=== PATIENT | female | born 1940 | race Caucasian/White ===

== ENCOUNTER 2020-12-15 17:37 | Inpatient (IN) ==
[2020-12-15 18:12] VITALS: BMI 24.4
[2020-12-15] MEDS ORDERED: NS 500 ML IV 500 ML IV STA (18:21)
[2020-12-15] MEDS ORDERED: ROCEPHIN 1 GRAM IV PREMIX 1 G/50 ML IV.SOLN. IV ONE ×2 (18:28→18:35)
[2020-12-15] MEDS ORDERED: CARDIZEM INJ 50 MG VIAL IVP ONE (18:28)
[2020-12-15] MEDS ORDERED: NS 500 ML IV 500 ML IV ONE (18:35)
[2020-12-15] MEDS ORDERED: CARDIZEM INJ 50 MG VIAL ONE (18:36)
[2020-12-15 19:00] LABS: BASOPHILS % (AUTO) 0.5 % (0.2-1.0); EOSINOPHILS % (AUTO) 0.2 % (0.9-2.9); HEMATOCRIT 35.3 % (36.0-47.0); HEMOGLOBIN 11.3 g/dL (12.0-16.0); LYMPHOCYTES # (AUTO) 1.7 X10^3/uL (1.3-2.9); LYMPHOCYTES % (AUTO) 20.3 % (21.0-51.0); MEAN CORPUSCULAR HEMOGLOBIN 31.8 pg (27.0-34.0); MEAN CORPUSCULAR HGB CONC 31.9 g/dL (33.0-35.0); MEAN CORPUSCULAR VOLUME 99.8 fL (80.0-100.0); MEAN PLATELET VOLUME 7.6 fL (7.4-11.0); MONOCYTES # (AUTO) 0.8 x10^3/uL (0.3-0.8); MONOCYTES % (AUTO) 9.6 % (0.0-13.0); NEUTROPHILS # (AUTO) 5.9 x10^3/uL (2.2-4.8); NEUTROPHILS % (AUTO) 69.4 % (42.0-75.0); PLATELET COUNT 348 X10^3/uL (150.0-450.0); RED BLOOD COUNT 3.54 X10^6/uL (3.5-5.4); WHITE BLOOD COUNT 8.6 X10^3/uL (3.6-10.0)
[2020-12-15] MEDS ORDERED: NS 100 ML IV 100 ML IV ONE (19:06)
[2020-12-15] MEDS ORDERED: CARDIZEM INJ 125 MG VIAL ONE (19:07)
[2020-12-15 19:13] LABS: ALANINE AMINOTRANSFERASE 20 Units/L (12-78); ALBUMIN 2.4 g/dL (3.4-5.0); ALKALINE PHOSPHATASE 125 Units/L (46-116); ASPARTATE AMINO TRANSFERASE 37 Units/L (15-37); BLOOD UREA NITROGEN 22 mg/dL (7-18); CALCIUM 8.5 mg/dL (8.5-10.1); CARBON DIOXIDE 24.6 mmol/L (21-32); CHLORIDE 102 mmol/L (98-107); COR CA(FOR HYPOALB) 9.8 mg/dL (8.5-10.1); COR NA(FOR HYPERGLY) 138 mmol/L (136-145); CREATININE 0.99 mg/dL (0.55-1.02); SODIUM 138 mmol/L (136-145); TOTAL PROTEIN 6.1 g/dL (6.4-8.2); eGFR NON BLACK RACES 58 (>60)
[2020-12-15] MEDS: CARDIZEM INJ 125 MG VIAL 125 MG in NS 100 ML IV 100 ML IV PRN (19:14)
[2020-12-15] MEDS ORDERED: AQUA-MEPHYTON ADULT INJ SC ONE (19:53)
--- NOTE | 2020-12-15 20:17 | DR.GENAD ---
HPI Time Seen Time Seen by Provider: 12/15/20 18:19 PCP Primary Care Physician: JOIE BARCLAY HPI Comment HPI Comment: PATIENT DIAGNOSED WITH A DVT OF LEFT LOWER EXTREMITY, REFERRED FROM DR SALTER FOR EVALUATION OF DYSPNEA PAST FEW DAYS AND AN ELEVATED INR-25. PATIENT TREATED FOR DVT INITALLY WITH ELIQUIS 10MG TWICE DAILY THE MONTHS OF SEP AND OCT 2020, ANTICOAGULANT CHANGED TO COUMADIN 5MG DAILY IN NOV 2020 THEN RECENTLY CHANGED TO COMADIN 3MG DAILY. PATIENT NOTICED INCREASING DYSPNEA PAST FEW DAYS. DENIES CHEST PAIN, FEVER, CHILLS, JOINT PAIN. Complaint/Symptoms Chief Complaint Doctors Comments: SHORTNESS OF BREATH, ELEVATED INR-26 Chief Complaint:: PT SENT TO ER FROM [facility]IE [facility]CL[facility] FOR FLU FOR INR COLLECTED TODAY , INR OF 26.42,PT TO ER WITH C/O > SOB , HX OF DVT( LLE) PT IS ON ANTI-COAGULANT , BR COVID-19 Coronavirus risk:travel/contact w/high risk person: No Nurses notes reviewed Nurses Notes Review: Yes Source History Provided: Patient Mode of Arrival Mode of Arrival: Ambulatory Timing Onset of Chief Complaint: 12/09/20 Came on: Gradually Duration Duration: Constant Modifying Factors Worsens:: EXERTION PMH PMH Past Medical History: No Past Surgical History: No Family History History of Family Medical Conditions: No Social History Does patient currently use any type of tobacco product: No Have you used tobacco products in the last 12 months: No Type of Tobacco Use: None Does any household member use tobacco: No Alcohol Use: None Do you use any recreational Drugs:: No Lives With: Family Lives Where: Home Travel Risk Coronavirus risk:travel/contact w/high risk person: No Infectious screening In the last 2 months have you had wt loss of >10#?: NO Have you had fever, night sweats or hemotysis?: No Have you traveled outside the country in the last 6 months?: No Isolation: Standard ROS Review of Systems Constitutional: No Symptoms Reported Eyes: No Symptoms Reported ENTM: No Symptoms Reported Respiratoy: See HPI Cardiovascular: See HPI Gastrointestinal/Abdominal: No Symptoms Reported Genitourinary: No Symptoms Reported Neurological: No Symptoms Reported Musculoskeletal: No Symptoms Reported Integumentary: No Symptoms Reported Hematologic/Lymphatic: No Symptoms Reported Endocrine: No Symptoms Reported Psychiatric: No Symptoms Reported All Other Systems: Reviewed and Negative PE Vital Signs Vitals: Temperature 98.4 F Pulse Rate 130 Respiratory Rate 26 Blood Pressure 139/88 O2 Sat by Pulse Oximetry 83 General Limitations: Physical Limitation General Appearance: Alert and In No Apparent Distress Head Head Exam: Normal Inspection Eyes Eye exam: Normal Appearance ENT ENT Exam: Normal Exam External Ear Exam: Normal External Inspection TM/Canal Exam: Bilateral: Normal Nose Exam: Normal Nose Exam Mouth Exam: Normal Inspection Throat Exam: Normal Inspection Neck Neck Exam: Normal Inspection Chest Chest Inspection: Normal Inspection Respiratory Respiratory Exam: Prolonged Expiratory Phase (TERMINAL EXPIRATORY WHEEZES, NO RALES, STRIDOR OR AUDIBLE WHEEZES) Respiratory Exam: Bilateral: Wheezing and Lower: Clear to Auscultation Cardiovascular Cardiovascular Exam: Tachycardia and Irregular Rhythm Abdominal Exam Abdominal Exam: Normal Inspection, Normal Bowel Sounds and Soft Extremities Extremities Exam: Normal Inspection and Full ROM Back Back Exam: Normal Inspection and Full ROM Neurologic Neurological Exam: Alert and Oriented X3 Psychiatric Psychiatric Exam: Normal Affect and Normal Mood Skin Skin Exam: Warm, Dry, Intact and Normal Color MDM Differential Diagnosis Differential Diagnosis: NEW ONSET ATRIAL FIBRILLATION, PNEUMONIA COURSE Treatment Treatment: IV NORMAL SALINE 10ML/HR, AFTER 2 SETS OF BLOOD CULTURES IV ROCEPHIN 1GM, VIT K 10MG SUBQ, IV BOLUS CARDIZEM 15MG, FOLLOWED BY CARDIZEM 10MG/HR, CRITICAL CARE TIME 60 MINUTES Consultation Call Returned: 21:50 Consultation Comments: DISCUSSED WITH DR MARADIAGA FOR ICU ADMIT Education/Counseling Education/Counseling: Patient and Counseling Educated On: Treatment and Diagnosis ROR Labs Reviewed Result Diagrams: 12/15/20 18:35 12/15/20 18:35 Laboratory: WBC 8.6 X10^3/uL (3.6-10.0) 12/15/20 18:35 RBC 3.54 X10^6/uL (3.5-5.4) 12/15/20 18:35 Hgb 11.3 g/dL (12.0-16.0) L 12/15/20 18:35 Hct 35.3 % (36.0-47.0) L 12/15/20 18:35 MCV 99.8 fL (80.0-100.0) 12/15/20 18:35 MCH 31.8 pg (27.0-34.0) 12/15/20 18:35 MCHC 31.9 g/dL (33.0-35.0) L 12/15/20 18:35 RDW 16.0 % (11.6-16.5) 12/15/20 18:35 Plt Count 348 X10^3/uL (150.0-450.0) 12/15/20 18:35 MPV 7.6 fL (7.4-11.0) 12/15/20 18:35 Neut % (Auto) 69.4 % (42.0-75.0) 12/15/20 18:35 Lymph % (Auto) 20.3 % (21.0-51.0) L 12/15/20 18:35 [place] % (Auto) 9.6 % (0.0-13.0) 12/15/20 18:35 Eos % (Auto) 0.2 % (0.9-2.9) L 12/15/20 18:35 Baso % (Auto) 0.5 % (0.2-1.0) 12/15/20 18:35 Neut # (Auto) 5.9 x10^3/uL (2.2-4.8) H 12/15/20 18:35 Lymph # (Auto) 1.7 X10^3/uL (1.3-2.9) 12/15/20 18:35 [place] # (Auto) 0.8 x10^3/uL (0.3-0.8) 12/15/20 18:35 Eos # (Auto) 0.0 x10^3/uL (0.0-0.2) 12/15/20 18:35 Baso # (Auto) 0.0 X10^3/uL (0.0-0.1) 12/15/20 18:35 Absolute Nucleated RBC 0.1 /100WBC 12/15/20 18:35 PT 167.9 SECONDS (11.8-14.3) 12/15/20 18:35 INR Target Range - 12/15/20 18:35 INR 27.40 (0.8-1.3) H* 12/15/20 18:35 Sodium 138 mmol/L (136-145) 12/15/20 18:35 Corrected Sodium 138 mmol/L (136-145) 12/15/20 18:35 Potassium 3.9 mmol/L (3.5-5.1) 12/15/20 18:35 Chloride 102 mmol/L (98-107) 12/15/20 18:35 Carbon Dioxide 24.6 mmol/L (21-32) 12/15/20 18:35 BUN 22 mg/dL (7-18) H 12/15/20 18:35 Creatinine 0.99 mg/dL (0.55-1.02) 12/15/20 18:35 Est GFR (MDRD) Af Amer > 60 (>60) 12/15/20 18:35 Est GFR (MDRD) Non-Af 58 (>60) L 12/15/20 18:35 Glucose 113 mg/dL (65-99) H 12/15/20 18:35 Calcium 8.5 mg/dL (8.5-10.1) 12/15/20 18:35 Corrected Calcium 9.8 mg/dL (8.5-10.1) 12/15/20 18:35 Ferritin 471 ng/mL (8-252) H 12/15/20 18:35 Total Bilirubin 0.50 mg/dL (0.2-1.0) 12/15/20 18:35 AST 37 Units/L (15-37) 12/15/20 18:35 ALT 20 Units/L (12-78) 12/15/20 18:35 Alkaline Phosphatase 125 Units/L (46-116) H 12/15/20 18:35 Troponin I 0.04 ng/mL (0-1.5) 12/15/20 18:35 C-Reactive Protein 137.30 mg/L (0-3.0) H 12/15/20 18:35 B-Natriuretic Peptide 601 pg/mL (0-79) H* 12/15/20 18:35 Total Protein 6.1 g/dL (6.4-8.2) L 12/15/20 18:35 Albumin 2.4 g/dL (3.4-5.0) L 12/15/20 18:35 Globulin 3.7 g/dL (2.5-4.5) 12/15/20 18:35 Albumin/Globulin Ratio 0.6 Ratio (1.1-2.1) L 12/15/20 18:35 SARS-CoV-2 (PCR) Positive (NEGATIVE) A 12/15/20 20:21 Influenza Type A (PCR) Negative (NEGATIVE) 12/15/20 20:21 Influenza Type B (PCR) Negative (NEGATIVE) 12/15/20 20:21 RSV (PCR) Negative (NEGATIVE) 12/15/20 20:21 Other Results Comments: ALL LABS REVIEWED XRAY X-ray Results: CHEST XRAY PA AND LAT CONSISTENT WITH CARDIOMEGALY WITH NEW BILATERAL RIGHT GREATER THAN LEFT INFILTRATES GREATEST IN THE RIGHT LUNG BASE EKG Rate: 150 [place]: RAD Rhythm: Afib Block: None Hypertrophy: None ST: Normal (NONSPECIFIC ST WAVE CHANGES) Opioid Opioid Risk Tool Age ([place] box if 16-45): No History of Preadolescent Sexual Abuse: No Total: 0 Total Score Risk Category: Low Risk Copyright: [place] predicting aberrant behaviors Diagnosis Discharge Problem: Atrial fibrillation, new onset, Pneumonia due to COVID-19 virus
[2020-12-15] MEDS ORDERED: LASIX IVP ONE (20:20)
[2020-12-15] MEDS ORDERED: LASIX ONE (20:22)
[2020-12-15] MEDS ORDERED: CARDIZEM INJ 125 MG VIAL 125 MG in NS 100 ML IV 100 ML IV PRN (22:36)
[2020-12-15] MEDS ORDERED: REMDESIVIR 200 MG in NS 250 ML IV 250 ML IV ONE (22:36)
[2020-12-15] MEDS ORDERED: IVERMECTIN PO ONE (22:36)
[2020-12-15] MEDS ORDERED: REMDESIVIR IV ONE (22:57)
[2020-12-15] MEDS ORDERED: NS 250 ML IV 250 ML IV ONE (22:58)
[2020-12-15] MEDS ORDERED: PHARMACY CONSULT - IVERMECTIN XX SCH (23:00)
[2020-12-16] MEDS ORDERED: PEPCID TAB 40 MG PO SCH
[2020-12-16] MEDS: PULMICORT NEB TX 0.5 MG NEB SCH ×3 (00:30→21:32)
[2020-12-16] MEDS: NS 1000 ML 1,000 ML IV SCH (00:33)
[2020-12-16] MEDS: BROVANA IN SCH ×3 (00:35→21:24)
[2020-12-16] MEDS: VIBRAMYCIN PO SCH ×3 (00:45→21:05)
[2020-12-16] MEDS: DECADRON TAB PO SCH ×2 (00:45→13:32)
[2020-12-16] MEDS ORDERED: HEPARIN SODIUM IN D5W 25,000 UNITS/500 ML BAG IV PRN (03:18)
[2020-12-16] MEDS ORDERED: DILAUDID INJ ONE (03:21)
[2020-12-16] MEDS ORDERED: HEPARIN SODIUM IN D5W 25,000 UNITS/500 ML BAG IV ONE (03:22)
[2020-12-16] MEDS: DILAUDID INJ IVP PRN ×3 (03:30→21:06)
[2020-12-16 03:48] LABS: BASOPHILS % (AUTO) 0.3 % (0.2-1.0); EOSINOPHILS % (AUTO) 0.3 % (0.9-2.9); HEMATOCRIT 32.9 % (36.0-47.0); HEMOGLOBIN 10.7 g/dL (12.0-16.0); LYMPHOCYTES # (AUTO) 1.8 X10^3/uL (1.3-2.9); LYMPHOCYTES % (AUTO) 14.5 % (21.0-51.0); MEAN CORPUSCULAR HEMOGLOBIN 32.3 pg (27.0-34.0); MEAN CORPUSCULAR HGB CONC 32.4 g/dL (33.0-35.0); MEAN CORPUSCULAR VOLUME 99.6 fL (80.0-100.0); MEAN PLATELET VOLUME 7.9 fL (7.4-11.0); MONOCYTES # (AUTO) 0.7 x10^3/uL (0.3-0.8); MONOCYTES % (AUTO) 5.5 % (0.0-13.0); NEUTROPHILS # (AUTO) 9.9 x10^3/uL (2.2-4.8); NEUTROPHILS % (AUTO) 79.4 % (42.0-75.0); PLATELET COUNT 186 X10^3/uL (150.0-450.0); RED CELL DISTRIBUTION WIDTH 15.4 % (11.6-16.5); WHITE BLOOD COUNT 12.4 X10^3/uL (3.6-10.0)
[2020-12-16 03:50] LABS: ALBUMIN 2.4 g/dL (3.4-5.0); CARBON DIOXIDE 21.3 mmol/L (21-32); COR CA(FOR HYPOALB) 9.3 mg/dL (8.5-10.1); CREATININE 1.21 mg/dL (0.55-1.02); TOTAL PROTEIN 5.9 g/dL (6.4-8.2)
[2020-12-16] MEDS ORDERED: HEPARIN SODIUM INJ 5000 UNITS ONE ×2 (03:52→20:40)
[2020-12-16 04:04] LABS: PLATELET MORPHOLOGY COMMENT NORMAL (NORMAL)
[2020-12-16] MEDS: ASCORBIC ACID INJ MULTI-DOSE VIAL 1,500 MG in NS 100 ML IV 100 ML IV SCH ×4 (04:11→21:04)
[2020-12-16] MEDS: CARDIZEM INJ 125 MG VIAL 125 MG in NS 100 ML IV 100 ML IV PRN (05:13)
--- NOTE | 2020-12-16 05:30 | RAD ---
PROCEDURE: Chest X-ray 1 View .HISTORY: DYSPNEA .TECHNIQUE: AP view .COMPARISON: 12/15/2020.TECHNICAL QUALITY: Satisfactory .FINDINGS:Unchanged start size upper limits of normal.Normal central vascularity.Unchanged consolidation on the right and some increase consolidation left upper lobe laterally with no pleural fluid or pneumothorax.IMPRESSION:Bilateral pneumonia is described above.Electronically signed by: J Luis Gutierrez (Dec 16, 2020 05:29:13)
[2020-12-16] MEDS ORDERED: LR 1000 ML IV 1,000 ML IV ONE (06:36)
[2020-12-16] MEDS ORDERED: NEXTERONE IV 150 MG PREMIX* 150 MG/100 ML BAG IV ONE (06:49)
[2020-12-16] MEDS: LIPITOR TAB 80 MG PO SCH (08:50)
[2020-12-16] MEDS: THIAMINE HCL INJ IVP SCH ×2 (08:50→21:05)
[2020-12-16] MEDS: IVERMECTIN PO SCH (08:51)
[2020-12-16] MEDS: ZINC SULFATE PO SCH ×2 (08:51→21:05)
[2020-12-16] MEDS ORDERED: TRICOR TAB 160 MG PO SCH (09:00)
[2020-12-16] MEDS ORDERED: PEPCID TAB 20 MG PO SCH (09:00)
[2020-12-16] MEDS ORDERED: VITAMIN D (1.25MG) PO SCH (09:00)
[2020-12-16] MEDS ORDERED: VITAMIN A PO SCH (09:00)
[2020-12-16] MEDS: NEXTERONE IV 360 MG PREMIX* 360 MG/200 ML BAG IV PRN ×2 (09:20→15:00)
[2020-12-16 09:39] LABS: BILIRUBIN,URINE NEGATIVE (NEGATIVE); BLOOD/HEMOGLOBIN,URINE 2+ (NEGATIVE); GLUCOSE, URINE NEGATIVE (NEGATIVE); KETONES,URINE NEGATIVE (NEGATIVE); LEUKOCYTE ESTERASE ,URINE NEGATIVE (NEGATIVE); NITRITES,URINE NEGATIVE (NEGATIVE); PROTEIN,URINE NEGATIVE (NEGATIVE); UROBILINOGEN,URINE NORMAL (NORMAL)
[2020-12-16] MEDS ORDERED: LASIX IVP STA (09:45)
[2020-12-16 09:47] LABS: APPEARANCE,URINE CLEAR (CLEAR); BACTERIA,URINE TRACE /HPF (NEGATIVE); COLOR,URINE YELLOW (YELLOW); SQUAMOUS EPITHELIAL CELL,UR FEW /HPF (NEGATIVE)
[2020-12-16 10:15] LABS: CALCIUM 7.7 mg/dL (8.5-10.1); CARBON DIOXIDE 15.8 mmol/L (21-32); CREATININE 1.96 mg/dL (0.55-1.02)
[2020-12-16 18:14] LABS: CALCIUM 7.8 mg/dL (8.5-10.1); CARBON DIOXIDE 22.1 mmol/L (21-32); CREATININE 2.33 mg/dL (0.55-1.02)
[2020-12-16] MEDS ORDERED: CORDARONE TAB 200 MG PO ONE (19:54)
[2020-12-16] MEDS ORDERED: CORDARONE TAB 200 MG ONE (20:14)
[2020-12-16] MEDS ORDERED: MELATONIN PO SCH (21:00)
[2020-12-17 02:38] LABS: BASOPHILS # (AUTO) 0.1 X10^3/uL (0.0-0.1); BASOPHILS % (AUTO) 0.6 % (0.2-1.0); EOSINOPHILS % (AUTO) 0.2 % (0.9-2.9); HEMATOCRIT 33.4 % (36.0-47.0); LYMPHOCYTES # (AUTO) 1.2 X10^3/uL (1.3-2.9); LYMPHOCYTES % (AUTO) 8.3 % (21.0-51.0); MEAN CORPUSCULAR HEMOGLOBIN 32.6 pg (27.0-34.0); MEAN CORPUSCULAR HGB CONC 32.8 g/dL (33.0-35.0); MEAN CORPUSCULAR VOLUME 99.3 fL (80.0-100.0); MEAN PLATELET VOLUME 8.3 fL (7.4-11.0); MONOCYTES # (AUTO) 0.8 x10^3/uL (0.3-0.8); MONOCYTES % (AUTO) 5.9 % (0.0-13.0); NEUTROPHILS # (AUTO) 12.2 x10^3/uL (2.2-4.8); PLATELET COUNT 224 X10^3/uL (150.0-450.0); RED BLOOD COUNT 3.37 X10^6/uL (3.5-5.4); RED CELL DISTRIBUTION WIDTH 15.9 % (11.6-16.5); WHITE BLOOD COUNT 14.3 X10^3/uL (3.6-10.0)
[2020-12-17 02:46] LABS: ALBUMIN 2.1 g/dL (3.4-5.0); CALCIUM 7.3 mg/dL (8.5-10.1); CARBON DIOXIDE 20.1 mmol/L (21-32); COR CA(FOR HYPOALB) 8.8 mg/dL (8.5-10.1); CREATININE 2.68 mg/dL (0.55-1.02); TOTAL PROTEIN 5.4 g/dL (6.4-8.2)
[2020-12-17 02:48] LABS: BAND NEUTROPHILS % 5 % (0-10); PLATELET MORPHOLOGY COMMENT NORMAL (NORMAL)
[2020-12-17] MEDS: ASCORBIC ACID INJ MULTI-DOSE VIAL 1,500 MG in NS 100 ML IV 100 ML IV SCH ×3 (03:30→17:12)
[2020-12-17 05:01] LABS: ABG BASE EXCESS -7.8 mmol/L (-2.0-2.0)
[2020-12-17 05:02] LABS: ABG ALLEN TEST POS; ABG HCO3 17.6 mmol/L (22-26)
[2020-12-17] MEDS: NS 1000 ML 1,000 ML IV SCH (06:07)
[2020-12-17] MEDS: DECADRON TAB PO SCH ×2 (06:08→10:37)
[2020-12-17] MEDS ORDERED: VITAMIN A PO SCH (09:00)
[2020-12-17] MEDS ORDERED: PEPCID TAB 20 MG PO SCH (09:00)
[2020-12-17] MEDS ORDERED: CORDARONE TAB 200 MG PO SCH (09:00)
[2020-12-17] MEDS ORDERED: VITAMIN D3 125 mcg (5,000 UNITS) PO SCH (09:00)
[2020-12-17] MEDS: BROVANA IN SCH (09:22)
[2020-12-17] MEDS: PULMICORT NEB TX 0.5 MG NEB SCH (09:27)
--- NOTE | 2020-12-17 09:31 | RAD ---
HISTORYR/O PULMONARY EDEMASTUDYCHEST, 1 VIEWCOMPARISONOne day prior.TECHNIQUEAP view of the chestFINDINGSThe cardiac silhouette is stably enlarged. Mediastinal contours appear stable. Interval improvement in bilateral hazy lung opacities. Scattered interstitial opacities remain. No definite pleural effusion or pneumothorax.IMPRESSIONInterval improvement in bilateral hazy lung opacities suggests improved pulmonary edema or pneumonia.Electronically signed by: Evelio Arroyo (Dec 17, 2020 09:30:53)
[2020-12-17] MEDS: IVERMECTIN PO SCH (10:34)
[2020-12-17] MEDS: THIAMINE HCL INJ IVP SCH (10:35)
[2020-12-17] MEDS: LIPITOR TAB 80 MG PO SCH (10:35)
[2020-12-17] MEDS: ZINC SULFATE PO SCH (10:36)
[2020-12-17] MEDS: VIBRAMYCIN PO SCH (10:36)
--- NOTE | 2020-12-17 13:44 | MRI ---
HISTORYRapid DECREASED RENAL FUNCTION over the past 2 daysSTUDYMRA ABDOMEN without IV contrastCOMPARISONNoneTECHNIQUEMRA of the abdomenwithout IV contrast is performed using standard sequences in multiple planes. MIP reconstructions are performed.FINDINGSRight kidney measures 9.5 cm in length. Left kidney measures 8.0 cm in length. No cortical thinning is seen. There is no hydronephrosis. Multiple T2 hyperintense lesions are seen in the kidneys. These are probably benign cysts. A few these may have mild wall calcification or this may be chemical shift artifact.The abdominal aorta is normal in size but does slightly dilate to 1.9 cm distally. There appear to be single renal arteries bilaterally. No suggestion of renal artery stenosis is seen. Normal flow voids seen in the IVC which is nondistended.Prior cholecystectomy with prominence of the intra and extrahepatic biliary ducts. No suggestion of ductal obstruction is seen, though. Pancreas is mostly fatty replaced. Adrenal glands appear normal. No focal hepatic or splenic lesion is seen. No adrenal nodules. No ascites or lymphadenopathy is seen.IMPRESSIONLikely tiny benign renal cysts are seen. No suggestion of significant renal artery stenosis or acute renal abnormality is seen.Electronically signed by: Félix Campbell (Dec 17, 2020 13:41:33)
[2020-12-17 17:09] VITALS: BP 123/80
== END 2020-12-17 17:10 | disposition short-term general hospital (02) | DRG 177 ==
LOC: ER 17:37 → ICU 22:34
PROVIDERS: ADMIT Obstetrics & Gynecology Obstetrics; ATTEND Obstetrics & Gynecology Obstetrics
DX: U07.1 COVID-19; I74.3 Embolism and thrombosis of arteries of the lower extremities; R06.02 Shortness of breath; D68.8 Other specified coagulation defects; F41.9 Anxiety disorder, unspecified; J12.81 Pneumonia due to SARS-associated coronavirus; Z86.718 Personal history of other venous thrombosis and embolism; I48.91 Unspecified atrial fibrillation; N17.9 Acute kidney failure, unspecified; R26.89 Other abnormalities of gait and mobility; G47.00 Insomnia, unspecified